=== PATIENT | male | born 1990 | race Caucasian/White ===

== ENCOUNTER 2020-04-06 22:22 | Emergency (ER) | payer OTHER ==
[~2020-04-06] VITALS: Ht 165.1 cm; Wt 64.4 kg
[2020-04-06 22:52] VITALS: Ht 165.1 cm; Wt 64.4 kg
[2020-04-07 00:24] VITALS: BP 103/70
== END 2020-04-07 00:24 | disposition home or self-care (01) ==
LOC: ED 22:22
DX: S06.0X0A Concussion without loss of consciousness, initial encounter (principal); R11.0 Nausea; V43.52XA Car driver injured in collision with other type car in traffic accident, initial encounter; Y93.I9 Activity, other involving external motion; Y92.488 Other paved roadways as the place of occurrence of the external cause; Y99.8 Other external cause status